=== PATIENT | female | born 1980 | race African-American/Black ===

== ENCOUNTER 2020-10-30 02:18 | Emergency (ER) | payer MEDICARE, OTHER ==
[~2020-10-30] VITALS: Ht 162.6 cm; Wt 90.7 kg
[~2020-10-30 02:18] MED LIST: KEFLEX500 MG ORAL; MACROBID100 MG ORAL; ZOFRAN ODT4 MG ORAL
--- NOTE | 2020-10-30 02:29 | Emergency Room Report ---
History of Present Illness General Chief Complaint: Female Urogenital Problems Source: Patient Present Illness HPI 40-year-old otherwise healthy female here with vaginal irritation and white vaginal discharge. Patient noticed the symptoms 2 days ago and they have gradually been worsening. Has had some mild dysuria during this time as well. Has had multiple urinary tract infections in the past. Patient is adamantly denying any exposure to any STDs and says that she has not recently been sexually active. Denies headache, vision change, fevers, chills, chest pain, palpitation of shortness breath, back pain, abdominal pain, nausea, vomiting, diarrhea, hematuria. 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 Patient History Now: No Nursing Documentation-[facility] Past Medical History: No Stated History Review of Systems All Other Systems: negative except mentioned in HPI Physical Exam Vital Signs Date Time Temp Pulse Resp B/P (MAP) Pulse Ox O2 Delivery O2 Flow Rate FiO2 10/30/20 02:20 98.2 97 18 147/92 (110) 97 Room Air Sp02 EP Interpretation: reviewed, normal General Appearance: no apparent distress, alert, non-toxic Head: normocephalic, atraumatic Eyes: bilateral eye normal inspection, bilateral eye PERRL ENT: hearing grossly normal, normal pharynx, no angioedema, normal voice Neck: full range of motion, supple/symm/no masses Respiratory: chest non-tender, lungs clear, normal breath sounds, speaking full sentences Cardiovascular #1: regular rate, rhythm, no edema Cardiovascular #2: 2+ carotid (R), 2+ carotid (L), 2+ radial (R), 2+ radial (L), 2+ dorsalis pedis (R), 2+ dorsalis pedis (L) Gastrointestinal: normal bowel sounds, non tender, soft, non-distended, no guarding, no rebound Rectal: deferred Genitourinary: normal inspection, no CVA tenderness Musculoskeletal: back normal, normal range of motion, gait/station normal, non- tender Neurologic: alert, motor strength/tone normal, oriented x3, sensory intact, responsive, speech normal Psychiatric: judgement/insight normal, memory normal, mood/affect normal, no suicidal/homicidal ideation Lymphatic: no adenopathy Medical Decision Making Diagnostic Impression: Primary Impression: UTI (urinary tract infection) Additional Impression: Yeast infection ER Course Laboratory Tests Test 10/30/20 02:32 Urine Color Pale yellow Urine Appearance Cloudy Urine pH 7 (4.5-8.0) Urine Specific [place] 1.015 (1.005-1.035) Urine Protein Negative (NEGATIVE) Urine Glucose (UA) Negative (NEGATIVE) Urine Ketones Negative (NEGATIVE) Urine Blood 1+ (NEGATIVE) H Urine Nitrite Negative (NEGATIVE) Urine Bilirubin Negative (NEGATIVE) Urine Urobilinogen 1 MG/DL (0.0-1.0) H Urine Leukocyte Esterase 3+ (NEGATIVE) H Urine RBC 10-15 /HPF (0 - 2) H Urine WBC 15-20 /HPF (0 - 2) H Urine Squamous Epithelial Cells Many /LPF (NONE/OCC) H Urine Bacteria Moderate /HPF (NONE) H Urine HCG, Qualitative Negative (NEGATIVE) 32-year-old female here with dysuria and vaginal discharge. Patient adamant that she has not been exposed to any STDs. Has had yeast infections in the past and said this feels the same. Was given prescription for fluconazole. Urinalysis did show evidence of urinary tract infection. Given prescription for Keflex. Vital signs were normal. No signs of sepsis. Told to return with any worsening symptoms. Discharged in stable condition. Last Vital Signs Date Time Temp Pulse Resp B/P (MAP) Pulse Ox O2 Delivery O2 Flow Rate FiO2 10/30/20 02:20 98.2 97 18 147/92 (110) 97 Room Air Scripts Fluconazole (FLUCONAZOLE) 100 Mg Tablet 100 MG ORAL DAILY, #3 TAB 0 Refills Prov: Nima Ferris M.D. 10/30/20 Cephalexin* (KEFLEX*) 500 Mg Capsule 500 MG ORAL EVERY 12 HOURS, #14 CAP 0 Refills Prov: Nima Ferris M.D. 10/30/20 Nima Ferris M.D. Oct 30, 2020 02:29
[2020-10-30 02:37] VITALS: BP 147/92
--- NOTE | 2020-10-30 02:37 | NUR ---
ED Nurse Note: urine sent to lab
[2020-10-30 02:41] LABS: APPEARANCE,URINE CLOUDY; BILIRUBIN, URINE NEGATIVE (NEGATIVE); COLOR,URINE PALE YELLOW; GLUCOSE, URINE (UA) NEGATIVE (NEGATIVE); KETONES,URINE NEGATIVE (NEGATIVE); LEUKOCYTE ESTERASE ,URINE 3+ (NEGATIVE); NITRITE,URINE NEGATIVE (NEGATIVE); PH,URINE 7 (4.5-8.0); PROTEIN,URINE NEGATIVE (NEGATIVE); UROBILINOGEN,URINE 1 MG/DL (0.0-1.0)
[2020-10-30] MEDS ORDERED: FLUCONAZOLE100 MG ORAL (02:52)
[2020-10-30] MEDS ORDERED: CEPHALEXIN500 MG ORAL (02:52)
[2020-10-30 03:20] VITALS: BP 132/88
== END 2020-10-30 03:24 | disposition home or self-care (01) ==
LOC: EMR 02:34
DX: B37.9 Candidiasis, unspecified (principal); N39.0 Urinary tract infection, site not specified
CPT/HCPCS: 81003; 81025; 87086; 99283